=== PATIENT | female | born 1955 ===

== ENCOUNTER 2016-06-07 10:34 | Day surgery (SDC) | payer OTHER ==
[2016-06-07 12:06] VITALS: BMI 25.7
[2016-06-07] MEDS ORDERED: Bupivacaine HCl 0.25% PF (10 ml) Inj ONE (13:10)
[2016-06-07] MEDS ORDERED: Propofol 10 mg/ml Inj (20 ML) ONE (13:12)
[2016-06-07] MEDS ORDERED: Midazolam 2 MG/2 ML VIAL ONE (13:12)
[2016-06-07] MEDS ORDERED: Lactated Ringer's 1,000 ML IV ONE (13:15)
[2016-06-07] MEDS ORDERED: Lidocaine 1% Inj (20ml) ONE (13:20)
[2016-06-07] MEDS: ceFAZolin IV 1 gm in Dextrose 50 ML IVPB ONE ×2 (13:30→13:35)
[2016-06-07] MEDS ORDERED: Oxycodone/Acetaminophen 5/325 mg Tab PO PRN (14:01)
[2016-06-07 14:26] VITALS: O2SAT 100
[2016-06-07] MEDS ORDERED: HYDROmorphone 0.5 mg/0.5 ml ISec IVP PRN (14:28)
[2016-06-07] MEDS ORDERED: Lactated Ringer's 1,000 ML IV SCH (14:30)
--- NOTE | 2016-06-07 14:52 | OP ---
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 PROCEDURE PERFORMED: Wide and deep excision soft tissue tumor of the left (greater than 5 cm) with a djacent tissue transfer closure. SURGEON: Chuy Rolon MD. ANESTHESIA: Local sedation. ESTIMATED BLOOD LOSS: 10 mL. POSTOPERATIVE CONDITION: Stable. INDICATIONS FOR SURGERY: This is a 60-year-old female with a painful mass of her left knee, found to have hemangioma associated with a soft tissue tumor, who now will undergo wide and deep excision. PROCEDURE: The patient was taken to the operating room and placed in the supine position. A generou s elliptical incision was made surrounding the 5 cm mass on the anterior portion of the knee and it w as dissected down into the fascial layer and completely removed. Bleeding was controlled using the B ovie. Generous tissue flaps were raised using the Bovie, and a greater than 30 sq cm adjacent tissue transfer closure was performed with multiple layers of Monocryl, subcuticular Monocryl, and glue. T he patient tolerated procedure well and returned to recovery room in stable condition. Chuy Rolon MD cc: [id number] TT: 06/07/2016 14:52:34 de
[2016-06-07 15:57] VITALS: BP 128/60; PULSE 59; RESP 18; TEMP 97.2
== END 2016-06-07 15:59 | disposition home or self-care (01) ==
LOC: C.SDS 10:34
PROVIDERS: ATTEND Surgery
DX: D18.09 Hemangioma of other sites (principal); R22.42 Localized swelling, mass and lump, left lower limb
CPT/HCPCS: 11406; 12032; 88305; J0690; J2250; J2704; J3010; J7120